=== PATIENT | female | born 1940 | race Caucasian/White ===

== ENCOUNTER 2018-02-02 08:00 | Outpatient (CLI) | payer MEDICARE, OTHER ==
[2018-02-02 18:58] LABS: BASOPHILS # (AUTO) 0.1 10^3/uL (0.0-0.1); BASOPHILS % (AUTO) 0.7 %; EOSINOPHILS # (AUTO) 0.2 10^3/uL (0.0-0.7); EOSINOPHILS % (AUTO) 1.9 %; HGB - HEMOGLOBIN 12.6 g/dL (12.0-16.0); LYMPHOCYTES # (AUTO) 2.2 10^3/uL (1.5-3.5); LYMPHOCYTES % (AUTO) 25.3 %; MEAN CORPUSCULAR HEMOGLOBIN 28.6 pg (27.0-31.0); MEAN CORPUSCULAR HGB CONC 32.5 g/dL (32.0-36.0); MEAN PLATELET VOLUME 8.3 fL (7.9-10.8); MONOCYTES # (AUTO) 0.6 10^3/uL (0.0-1.0); MONOCYTES % (AUTO) 7.1 %; NEUTROPHILS # (AUTO) 5.8 10^3/uL (1.5-6.6); PLT - PLATELET COUNT 443 10^3/uL (130-450); RED CELL DISTRIBUTION WIDTH 13.4 % (12.0-15.0); WHITE BLOOD COUNT 8.9 x10^3/uL (4.8-10.8)
[2018-02-02 19:13] LABS: ALBUMIN 4.4 g/dL (3.2-5.5); ALBUMIN/GLOBULIN RATIO 1.6 (1.0-2.2); ALKALINE PHOSPHATASE 90 IU/L (42-121); ALT ALANINE AMINOTRANSFERASE 15 IU/L (10-60); AMYLASE 79 U/L (28-100); AST ASPARTATE AMINOTRANSFERASE 20 IU/L (10-42); BILIRUBIN,TOTAL 0.3 mg/dL (0.2-1.0); BUN - BLOOD UREA NITROGEN 14 mg/dL (6-20); CALCIUM 9.5 mg/dL (8.5-10.3); CARBON DIOXIDE - CO2 24 mmol/L (21-32); CHLORIDE 105 mmol/L (101-111); CREATININE 0.8 mg/dL (0.4-1.0); GFR - MDRD 69 (>89); GLUCOSE 93 mg/dL (70-100); LIPASE 22 U/L (22-51); SODIUM 138 mmol/L (135-145); TOTAL PROTEIN 7.2 g/dL (6.7-8.2)
[2018-02-02 19:30] LABS: CRP - C-REACTIVE PROTEIN < 1.0 mg/dL (0-1.0)
== END 2018-02-02 08:01 | disposition home or self-care (01) ==
LOC: LAB.WCP 08:00
PROVIDERS: ATTEND Family Medicine
DX: R10.11 Right upper quadrant pain (principal)
CPT/HCPCS: 36415; 80053; 82150; 83690; 85025; 86140

== ENCOUNTER 2018-02-03 21:32 | Outpatient (CLI) | payer MEDICARE, OTHER | END 2018-02-03 21:33 | disposition home or self-care (01) | LOC: LAB.WCP 21:32 | PROVIDERS: ATTEND Family Medicine | DX: R10.11 Right upper quadrant pain (principal) | CPT/HCPCS: 87493 ==

== ENCOUNTER 2018-04-13 08:00 | Outpatient (CLI) | payer MEDICARE ==
[2018-04-13 19:03] LABS: HGB - HEMOGLOBIN 12.1 g/dL (12.0-16.0); MEAN CORPUSCULAR HGB CONC 32.2 g/dL (32.0-36.0); MEAN CORPUSCULAR VOLUME 83.9 fL (81.0-99.0); MEAN PLATELET VOLUME 8.2 fL (7.9-10.8); RED BLOOD COUNT 4.46 10^6/uL (4.20-5.40); RED CELL DISTRIBUTION WIDTH 15.6 % (12.0-15.0); WHITE BLOOD COUNT 6.9 x10^3/uL (4.8-10.8)
[2018-04-13 19:19] LABS: TROPONIN I < 0.04 ng/mL (<0.49)
[2018-04-13 19:21] LABS: CREATINE KINASE MB 1.7 ng/mL (0.6-6.3)
[2018-04-13 19:28] LABS: ALBUMIN 3.9 g/dL (3.2-5.5); ALBUMIN/GLOBULIN RATIO 1.4 (1.0-2.2); BILIRUBIN,TOTAL 0.2 mg/dL (0.2-1.0); CALCIUM 10.1 mg/dL (8.5-10.3); CREATININE 0.6 mg/dL (0.4-1.0); TOTAL PROTEIN 6.7 g/dL (6.7-8.2)
== END 2018-04-13 08:01 | disposition home or self-care (01) ==
LOC: LAB.WCP 08:00
PROVIDERS: ATTEND Family Medicine
DX: R07.9 Chest pain, unspecified (principal)
CPT/HCPCS: 36415; 80053; 82553; 84484; 85027; 85379

== ENCOUNTER 2018-04-14 22:00 | Outpatient (CLI) | payer MEDICARE | END 2018-04-14 22:01 | disposition critical access hospital (66) | LOC: EMS 22:00 | PROVIDERS: ATTEND Surgery | DX: R07.9 Chest pain, unspecified (principal); R11.0 Nausea | CPT/HCPCS: A0425; A0427 ==

== ENCOUNTER 2018-04-14 22:13 | Emergency (ER) | payer MEDICARE ==
[2018-04-14 22:48] LABS: BASOPHILS # (AUTO) 0.1 10^3/uL (0.0-0.1); BASOPHILS % (AUTO) 0.7 %; EOSINOPHILS # (AUTO) 0.2 10^3/uL (0.0-0.7); EOSINOPHILS % (AUTO) 2.3 %; HGB - HEMOGLOBIN 11.8 g/dL (12.0-16.0); LYMPHOCYTES # (AUTO) 1.8 10^3/uL (1.5-3.5); LYMPHOCYTES % (AUTO) 23.1 %; MEAN CORPUSCULAR HEMOGLOBIN 26.5 pg (27.0-31.0); MEAN CORPUSCULAR HGB CONC 31.4 g/dL (32.0-36.0); MEAN CORPUSCULAR VOLUME 84.3 fL (81.0-99.0); MEAN PLATELET VOLUME 7.7 fL (7.9-10.8); MONOCYTES # (AUTO) 0.8 10^3/uL (0.0-1.0); MONOCYTES % (AUTO) 10.9 %; NEUTROPHILS # (AUTO) 4.8 10^3/uL (1.5-6.6); PLT - PLATELET COUNT 310 10^3/uL (130-450); RED BLOOD COUNT 4.47 10^6/uL (4.20-5.40); WHITE BLOOD COUNT 7.7 x10^3/uL (4.8-10.8)
[2018-04-14] MEDS ORDERED: LIDOCAINE VISCOUS 2% 15 ML UDC MM STA (22:55)
[2018-04-14] MEDS ORDERED: FAMOTIDINE 20 MG TABLET PO STA (22:55)
[2018-04-14] MEDS ORDERED: MAG HYDROX/AL HYDROX/SIMETH 30 ML UDC PO STA (22:55)
[2018-04-14] MEDS ORDERED: IOPAMIDOL-300 100 ML VIAL ONE (22:56)
[2018-04-14 23:01] LABS: ALBUMIN 3.6 g/dL (3.2-5.5); ALBUMIN/GLOBULIN RATIO 1.4 (1.0-2.2); BILIRUBIN,TOTAL 0.6 mg/dL (0.2-1.0); CALCIUM 9.2 mg/dL (8.5-10.3); CREATININE 0.7 mg/dL (0.4-1.0); TOTAL PROTEIN 6.2 g/dL (6.7-8.2)
[2018-04-14] MEDS ORDERED: ONDANSETRON 4 MG/2 ML VIAL IVP STA (23:28)
[2018-04-14] MEDS ORDERED: IOPAMIDOL-300 100 ML VIAL IVP ONE (23:28)
[2018-04-14] MEDS ORDERED: MORPHINE 10 MG/ML VIAL IVP STA (23:49)
--- NOTE | 2018-04-15 00:07 | CT Report ---
EXAM: CT ANGIOGRAM CHEST EXAM DATE: 04/14/2018 11:29 PM. CLINICAL HISTORY: Chest pain, tachycardic. COMPARISON: CT abdomen 07/04/2016. TECHNIQUE: Routine helical imaging was performed through the chest in the pulmonary arterial phase. I V Contrast: Yes. Reconstructions: Coronal 3-D MIP reconstructions.Sagittal and coronal. In accordance with CT protocol optimization, one or more of the following dose reduction techniques w ere utilized for this exam: automated exposure control, adjustment of mA and/or KV based on patient s ize, or use of iterative reconstructive technique. FINDINGS: Pulmonary Arteries: Technically adequate for evaluation through the segmental arteries. No evidence f or acute or chronic pulmonary emboli. Lungs/Pleura: No pneumonia, suspicious nodules, or edema. Minimal subpleural reticulation probably re lated to senescent changes rather than a significant pulmonary fibrosis. No effusions or pneumothorax . Mediastinum: Moderate hiatal hernia. No acute aortic syndrome. No cardiac enlargement. No adenopathy . Upper Abdomen: Incidental right adrenal adenoma again noted without acute abnormality seen in the upp er abdomen. Other: None. IMPRESSION: 1. Negative pulmonary CT angiogram. No pulmonary emboli. 2. Moderate hiatal hernia. [facility] Referring Provider Line: [phone] SITE ID: [id number]
--- NOTE | 2018-04-15 00:24 | ED Physician Documentation ---
PD HPI CHEST PAIN - Stated complaint Stated Complaint: CP - Chief complaint Chief Complaint: Cardiac - History obtained from History obtained from: Patient, Family, EMS - History of Present Illness Timing - onset: How many days ago (5) Timing - onset during: Sleep Timing - details: Intermittant, Waxing and waning Quality: Sharp, Tearing Location: Substernal Radiation: Back Improved by: Other (sitting up) Worsened by: Position, Other (lying flat) Associated symptoms: Shortness of air, Diaphoresis, Nausea, Vomiting Similar symptoms before: Work up / diagnostics Recently seen: Clinic - Additional information Additional information: Patient is a 78 year old female presenting to the emergency department for chest pain. According to patient and ems patient has had pain for about the last 4-5 days. Patient went to see her doctor and all of the tests were normal. patient states that the pain is worse when she lies down at night and better when she sits up. Patient does not have the pain throughout the day. there is no exertional component. Patient was told to come to the ER if the pain returned. Review of Systems Constitutional: denies: Fever, Chills Eyes: reports: Reviewed and negative Ears: reports: Reviewed and negative Cardiac: reports: Chest pain / pressure Respiratory: denies: Dyspnea, Cough, Wheezing GI: reports: Abdominal Pain, Nausea. denies: Vomiting, Constipation, Diarrhea : denies: Dysuria, Frequency Musculoskeletal: reports: Back pain Immunocompromised: denies: Immunocompromised PD PAST MEDICAL HISTORY - Present Medications Home Medications: Ambulatory Orders Medication Instructions Recorded Confirmed Famotidine [Pepcid] 20 mg PO DAILY #30 tablet 04/15/18 Pantoprazole Sodium [Protonix] 20 mg PO DAILY #30 tablet. 04/15/18 Sucralfate [Carafate] 1 gm PO DAILY #100 ml 04/15/18 - Allergies Allergies/Adverse Reactions: Allergies Allergy/AdvReac Type Severity Reaction Status Date / Time codeine Allergy Unknown Verified 04/15/18 00:41 Penicillins Allergy Unknown Verified 04/15/18 00:41 PD ED PE NORMAL - Vitals Vital signs reviewed: Yes - General General: Alert and oriented X 3, No acute distress - HEENT HEENT: Atraumatic - Neck Neck: No JVD - Cardiac Cardiac: RRR - Respiratory Respiratory: No respiratory distress - Abdomen Abdomen: Soft, Non tender, Non distended - Derm Derm: Normal color, Warm and dry, No rash - Extremities Extremities: No deformity - Neuro Neuro: Alert and oriented X 3 Eye Opening: Spontaneous Motor: Obeys Commands Verbal: Oriented GCS Score: 15 Results - Vitals Vitals: Vital Signs - 24 hr 04/14/18 04/14/18 04/15/18 22:15 23:03 00:30 Temperature 36.6 C Heart Rate 99 93 99 Respiratory 16 16 19 Rate Blood Pressure 170/72 H 139/59 H 155/65 H O2 Saturation 98 97 92 04/15/18 00:40 Temperature Heart Rate 97 Respiratory 16 Rate Blood Pressure 139/57 H O2 Saturation 98 Oxygen O2 Source Room air - EKG (time done) 2218 Rate: Rate (enter#) (95) Rhythm: NSR [place]: Normal Intervals: Normal VT Compare to prior EKG: Old EKG unavailable - Labs Labs: Laboratory Tests 04/14/18 04/14/18 04/14/18 22:35 22:35 22:35 WBC 7.7 RBC 4.47 Hgb 11.8 L Hct 37.6 MCV 84.3 MCH 26.5 L MCHC 31.4 L RDW 15.0 Plt Count 310 MPV 7.7 L Neut # 4.8 Lymph # 1.8 Cassia # 0.8 Eos # 0.2 Baso # 0.1 Absolute Nucleated RBC 0.00 Nucleated RBC % 0.0 Sodium 138 Potassium 3.8 Chloride 105 Carbon Dioxide 24 Anion Gap 9.0 BUN 23 H Creatinine 0.7 Estimated GFR (MDRD) 81 L Glucose 145 H Calcium 9.2 Total Bilirubin 0.6 AST 19 ALT 17 Alkaline Phosphatase 87 Total Creatine Kinase 54 Troponin I 0.04 B-Natriuretic Peptide Total Protein 6.2 L Albumin 3.6 Globulin 2.6 Albumin/Globulin Ratio 1.4 Lipase 32 04/14/18 22:35 WBC RBC Hgb Hct MCV MCH MCHC RDW Plt Count MPV Neut # Lymph # Cassia # Eos # Baso # Absolute Nucleated RBC Nucleated RBC % Sodium Potassium Chloride Carbon Dioxide Anion Gap BUN Creatinine Estimated GFR (MDRD) Glucose Calcium Total Bilirubin AST ALT Alkaline Phosphatase Total Creatine Kinase Troponin I B-Natriuretic Peptide 51 Total Protein Albumin Globulin Albumin/Globulin Ratio Lipase - Rads (name of study) ct angio Radiology: Final report received (no pe) PD MEDICAL DECISION MAKING - ED course Complexity details: reviewed old records, reviewed results, re-evaluated patient , considered differential, d/w patient, d/w family ED course: Patient was seen and examined at bedside. ekg was performed and was within normal limits. IV access was gained and labs were drawn. imaging was ordered. Patient had severe symptoms when she was lying down and got better when she was sitting up. Patient was treated with pepcid, maalox and lidocaine. When patient returned from imaging she stated that her pain was back and patient was treated with morphine. Patient's diagnostics were reviewed and there was no PE or other acute findings. Patient was found to have a hiatal hernia. Further discussion with the patient revealed that she had been eating at least 3 clementines daily, so days even more. Patient reported that her symptoms didn' t start until after she had started eating them. Patient had an appointment for a stress test next week. Patient was well appearing and her symptoms were unlikely cardiac in nature. Patient was stable for discharge with outpatient follow up. Departure - Departure Disposition: Home, Self Care Clinical Impression: Gastritis Condition: Good Instructions: ED Gastritis Follow-Up: James Donovan MD [Provider Admit Priv/Credential] - Tomorrow Prescriptions: Famotidine [Pepcid] 20 mg PO DAILY #30 tablet Pantoprazole Sodium [Protonix] 20 mg PO DAILY #30 tablet. Sucralfate [Carafate] 1 gm PO DAILY #100 ml Comments: Your diagnostics today were within normal limits. this indicates it is less likely cardiac in nature. That being said you should still follow up with your appointment for the stress test. Your symptoms seem to be related to stomach acid and your hiatal hernia. You will need to cut out acidic foods (clementines , coffee, alcohol) spicey foods and eat smaller meals. You should call Dr. Posadas' office tomorrow and schedule a follow up appointment. Discharge Date/Time: 04/15/18 00:50
[2018-04-15 00:41] VITALS: BP 139/57
== END 2018-04-15 00:50 | disposition home or self-care (01) ==
LOC: EDUNIT# → ED 22:13
DX: K29.70 Gastritis, unspecified, without bleeding (principal)
CPT/HCPCS: 36415; 71275; 80053; 82550; 83690; 83880; 84484; 85025; 93005; 96374; 96375; 99283; 99284; A9270; Q9967

== ENCOUNTER 2018-04-27 16:03 | Outpatient (CLI) | payer MEDICARE ==
--- NOTE | 2018-04-27 17:09 | Ultrasound Report ---
EXAM: ABDOMEN ULTRASOUND LIMITED, RUQ EXAM DATE: 04/27/2018 04:56 PM. CLINICAL HISTORY: ABDOMINAL PAIN,RT UPPER QUADRANT. COMPARISON: None. TECHNIQUE: Real-time scanning was performed with static images obtained. FINDINGS: Liver: Diffuse increased echogenicity with area of focal sparing. 16.9 cm. Main portal vein flow: Hep atopetal. Gallbladder: No stones, wall thickening, or sonographic Huang's sign. Biliary System: CBD measures 8 mm. No intrahepatic or extrahepatic ductal dilatation. Other: Mild fullness to the right collecting system. IMPRESSION: Mild fullness to the right collecting system appears to be present, not clearly seen on prior CT from 04/14/18, although comparison between the 2 modalities is difficult. CT could better assess for possi ble hydronephrosis. Hepatic steatosis. [facility] The above findings were discussed with Dr Robert Dr by Dr. Newton Williamson at 17:07 hrs on 04/27/18. Referring Provider Line: [phone] SITE ID: [id number]
== END 2018-04-27 16:04 | disposition home or self-care (01) ==
LOC: DI 16:03
PROVIDERS: ATTEND Internal Medicine Gastroenterology
DX: R10.11 Right upper quadrant pain (principal); K76.0 Fatty (change of) liver, not elsewhere classified
CPT/HCPCS: 76705

== ENCOUNTER 2018-04-29 08:51 | Day surgery (SDC) | payer MEDICARE | END 2018-04-29 08:52 | disposition home or self-care (01) | LOC: SDS 08:51 | PROVIDERS: ATTEND Internal Medicine Gastroenterology | DX: R13.10 Dysphagia, unspecified (principal); K44.9 Diaphragmatic hernia without obstruction or gangrene; R07.9 Chest pain, unspecified | CPT/HCPCS: 93005 ==

== ENCOUNTER 2018-04-29 10:01 | Emergency (ER) | payer MEDICARE ==
[2018-04-29 10:25] LABS: BASOPHILS % (AUTO) 0.5 %; EOSINOPHILS % (AUTO) 0.4 %; HGB - HEMOGLOBIN 12.4 g/dL (12.0-16.0); LYMPHOCYTES # (AUTO) 1.1 10^3/uL (1.5-3.5); LYMPHOCYTES % (AUTO) 15.5 %; MEAN CORPUSCULAR HEMOGLOBIN 27.5 pg (27.0-31.0); MEAN CORPUSCULAR HGB CONC 32.5 g/dL (32.0-36.0); MEAN CORPUSCULAR VOLUME 84.5 fL (81.0-99.0); MEAN PLATELET VOLUME 7.8 fL (7.9-10.8); MONOCYTES # (AUTO) 0.6 10^3/uL (0.0-1.0); MONOCYTES % (AUTO) 8.3 %; NEUTROPHILS # (AUTO) 5.5 10^3/uL (1.5-6.6); NEUTROPHILS % (AUTO) 75.3 %; PLT - PLATELET COUNT 398 10^3/uL (130-450); RED BLOOD COUNT 4.52 10^6/uL (4.20-5.40); RED CELL DISTRIBUTION WIDTH 15.4 % (12.0-15.0); WHITE BLOOD COUNT 7.4 x10^3/uL (4.8-10.8)
[2018-04-29 10:40] LABS: ALBUMIN 3.4 g/dL (3.2-5.5); ALBUMIN/GLOBULIN RATIO 1.1 (1.0-2.2); BILIRUBIN,TOTAL 0.5 mg/dL (0.2-1.0); CALCIUM 9.6 mg/dL (8.5-10.3); CREATININE 0.6 mg/dL (0.4-1.0); TOTAL PROTEIN 6.4 g/dL (6.7-8.2)
[2018-04-29 10:54] LABS: BILIRUBIN,URINE NEGATIVE (NEGATIVE); CLARITY,URINE CLEAR (CLEAR); GLUCOSE, URINE (UA) NEGATIVE (NEGATIVE); KETONES,URINE (UA) NEGATIVE (NEGATIVE); LEUKOCYTE ESTERASE, URINE NEGATIVE (NEGATIVE); NITRITE,URINE NEGATIVE (NEGATIVE); OCCULT BLOOD,URINE NEGATIVE (NEGATIVE); PROTEIN,URINE NEGATIVE (NEGATIVE); UROBILINOGEN,URINE 0.2 (NORMAL) E.U./dL (NORMAL)
--- NOTE | 2018-04-29 11:46 | ED Physician Documentation ---
PD HPI CHEST PAIN - Stated complaint Stated Complaint: AFIB - Chief complaint Chief Complaint: Cardiac - History obtained from History obtained from: Patient, Family - History of Present Illness Timing - onset: Enter time (), Today Timing - onset during: Sleep Timing - duration: Minutes Timing - details: Abrupt onset, Intermittant Quality: Pressure, Tightness Location: Substernal, Upper back Radiation: Back Improved by: Nothing Associated symptoms: Nausea, Feeling faint / dizzy. No: Shortness of air, Vomiting Similar symptoms before: Diagnosis (gastritis) Recently seen: Other - Additional information Additional information: 78-year-old female has had episodes of chest pain for the past 3 weeks. She has had some nausea and some vomiting with some water associated with this and she has been seen in the emergency department and diagnosed with gastritis. She is on some medications which did not seem to have made the episodes less. She was noted to have a hiatal hernia at the time of evaluation in the emergency department and she was to get a EGD done today. She has also had further workup to include gallbladder ultrasound and an exercise treadmill test. She indicates the exercise treadmill test she believes was negative she recalls doing about 10 minutes on the test. Review of Systems Constitutional: denies: Fever, Chills, Myalgias Eyes: denies: Decreased vision Ears: denies: Ear pain Nose: denies: Congestion Throat: denies: Sore throat Cardiac: reports: Chest pain / pressure. denies: Palpitations, Pedal edema, Calf pain Respiratory: denies: Dyspnea, Cough GI: reports: Abdominal Pain, Nausea, Vomiting : denies: Dysuria Skin: denies: Rash Musculoskeletal: denies: Neck pain, Back pain PD PAST MEDICAL HISTORY - Past Medical History Cardiovascular: Hypertension, Arrhythmia Respiratory: Other Endocrine/Autoimmune: None GI: GERD, Colon polyps, Diverticulitis : None HEENT: Chronic vision loss Psych: None Musculoskeletal: None Derm: None - Past Surgical History Past Surgical History: Yes General: Appendectomy, Colonoscopy, EGD Ortho: Shoulder arthroplasty, Other /CONFORMAL PAD FORMER: Dilation and currettage, Hysterectomy, Other HEENT: Cataracts, Tonsil/Adenoidectomy - Present Medications Home Medications: Ambulatory Orders Medication Instructions Recorded Confirmed Famotidine [Pepcid] 20 mg PO DAILY #30 tablet 04/15/18 Pantoprazole Sodium [Protonix] 20 mg PO DAILY #30 tablet. 04/15/18 Sucralfate [Carafate] 1 QID 04/28/18 - Allergies Allergies/Adverse Reactions: Allergies Allergy/AdvReac Type Severity Reaction Status Date / Time codeine Allergy Unknown Verified 04/15/18 00:41 Penicillins Allergy Unknown Verified 04/15/18 00:41 - Social History Does the pt smoke?: No Smoking Status: Never smoker Does the pt drink ETOH?: No Does the pt have substance abuse?: No - Immunizations Immunizations are current?: Yes - POLST Patient has POLST: No PD ED PE NORMAL - Vitals Vital signs reviewed: Yes (tachy and hypertensive) - General General: Alert and oriented X 3, Well developed/nourished, Other (appears mildy anxious) - HEENT HEENT: Atraumatic, PERRL, EOMI - Neck Neck: Supple, no meningeal sign, No bony TTP - Cardiac Cardiac: No murmur, Other (regular and tachy to 100) - Respiratory Respiratory: No respiratory distress, Clear bilaterally - Abdomen Abdomen: Soft, Other (mild right lower quadrant tenderness) - Back Back: No CVA TTP, No spinal TTP - Derm Derm: Normal color, No rash - Extremities Extremities: No deformity, No calf tenderness / cord - Neuro Neuro: Alert and oriented X 3, No motor deficit, No sensory deficit, Normal speech Eye Opening: Spontaneous Motor: Obeys Commands Verbal: Oriented GCS Score: 15 - Psych Psych: Normal affect, Other (mood is anxious) Results - Vitals Vitals: Vital Signs - 24 hr 04/29/18 10:11 Temperature 36.8 C Heart Rate 102 H Respiratory 17 Rate Blood Pressure 138/54 H O2 Saturation 99 Oxygen O2 Source Room air - EKG (time done) 0929 Rate: Rate (enter#) (131) Rhythm: Atrial fibrillation Compare to prior EKG: Changed from prior EKG (SPT 04-14-18) Computer interpretation: Agree with computer - Labs Labs: Laboratory Tests 04/29/18 04/29/18 04/29/18 10:15 10:15 10:15 WBC 7.4 RBC 4.52 Hgb 12.4 Hct 38.2 MCV 84.5 MCH 27.5 MCHC 32.5 RDW 15.4 H Plt Count 398 MPV 7.8 L Neut # (Auto) 5.5 Lymph # (Auto) 1.1 L [place] # (Auto) 0.6 Eos # (Auto) 0.0 Baso # (Auto) 0.0 Absolute Nucleated RBC 0.00 Nucleated RBC % 0.0 Sodium 137 Potassium 4.3 Chloride 105 Carbon Dioxide 25 Anion Gap 7.0 BUN 16 Creatinine 0.6 Estimated GFR (MDRD) 96 Glucose 123 H Calcium 9.6 Total Bilirubin 0.5 AST 24 ALT 24 Alkaline Phosphatase 70 Troponin I < 0.04 Total Protein 6.4 L Albumin 3.4 Globulin 3.0 Albumin/Globulin Ratio 1.1 Lipase 33 Urine Color Urine Clarity Urine pH Ur Specific [place] Urine Protein Urine Glucose (UA) Urine Ketones Urine Occult Blood Urine Nitrite Urine Bilirubin Urine Urobilinogen Ur Leukocyte Esterase Ur Microscopic Review Urine Culture Comments 04/29/18 10:45 WBC RBC Hgb Hct MCV MCH MCHC RDW Plt Count MPV Neut # (Auto) Lymph # (Auto) [place] # (Auto) Eos # (Auto) Baso # (Auto) Absolute Nucleated RBC Nucleated RBC % Sodium Potassium Chloride Carbon Dioxide Anion Gap BUN Creatinine Estimated GFR (MDRD) Glucose Calcium Total Bilirubin AST ALT Alkaline Phosphatase Troponin I Total Protein Albumin Globulin Albumin/Globulin Ratio Lipase Urine Color YELLOW Urine Clarity CLEAR Urine pH 6.0 Ur Specific [place] 1.020 Urine Protein NEGATIVE Urine Glucose (UA) NEGATIVE Urine Ketones NEGATIVE Urine Occult Blood NEGATIVE Urine Nitrite NEGATIVE Urine Bilirubin NEGATIVE Urine Urobilinogen 0.2 (NORMAL) Ur Leukocyte Esterase NEGATIVE Ur Microscopic Review NOT INDICATED Urine Culture Comments NOT INDICATED Procedures - IVC sono (time) 1130 Bedside IVC sono: IVC measures (cm) (1.68), IVC collapsed c insp (cm) (1.02), Euvolemia PD MEDICAL DECISION MAKING - ED course Complexity details: reviewed old records, reviewed results, re-evaluated patient , considered differential, d/w patient, d/w family ED course: 78-year-old female who is been having episodes of chest pain for the past 3 weeks was in the preop area getting ready to have an EGD done when her heart rate was 120 electric cardiogram was done showing atrial fibrillation with rapid ventricular rate at 131 and she was transferred to the emergency department for further evaluation. She gives a history of episodic chest pain without a history of exertionally related chest pain and she has been in for diagnostics which have been without clear etiology. She has not had improvement with treatment of gastritis. Here in the emergency department she converts to a sinus rhythm with a rate of approximately 100 she did receive a liter of saline. She appears now euvolemic. Despite this she has an episode of chest pain and this is improved with use of a single sublingual nitroglycerin. Her troponin initially is negative and transfer is sought. Dr. Lira graciously accepts the patient in transfer to [facility]. - Sepsis Event Vital Signs: Vital Signs - 24 hr 04/29/18 10:11 Temperature 36.8 C Heart Rate 102 H Respiratory 17 Rate Blood Pressure 138/54 H O2 Saturation 99 Oxygen O2 Source Room air Departure - Departure Disposition: 02 Transfer Acute Care Hosp Clinical Impression: Atypical chest pain, Unstable angina
[2018-04-29] MEDS ORDERED: NITROGLYCERIN SL 0.4 MG TABLET SL ONE (11:48)
[2018-04-29] MEDS ORDERED: NITROGLYCERIN SL 0.4 MG TABLET SL STA (12:01)
[2018-04-29] MEDS ORDERED: ASPIRIN CHEW 81 MG TABLET PO STA (12:31)
[2018-04-29] MEDS ORDERED: HEPARIN 5,000 UNIT/ML VIAL IVP ONE (12:37)
[2018-04-29 12:46] VITALS: BP 129/60
== END 2018-04-29 14:30 | disposition short-term general hospital (02) ==
LOC: ED 10:01
DX: I48.91 Unspecified atrial fibrillation (principal); I20.0 Unstable angina; I10 Essential (primary) hypertension; K21.9 Gastro-esophageal reflux disease without esophagitis; K44.9 Diaphragmatic hernia without obstruction or gangrene; R13.10 Dysphagia, unspecified; R07.9 Chest pain, unspecified
CPT/HCPCS: 36415; 80053; 81003; 83690; 84484; 85025; 93005; 96374; 99284; 99285; A9270; 81001; 87086

== ENCOUNTER 2018-05-06 06:08 | Outpatient (CLI) | payer MEDICARE | END 2018-05-06 06:09 | disposition critical access hospital (66) | LOC: EMS 06:08 | PROVIDERS: ATTEND Surgery | DX: R07.9 Chest pain, unspecified (principal) | CPT/HCPCS: A0425; A0427 ==

== ENCOUNTER 2018-05-06 06:27 | Emergency (ER) | payer MEDICARE ==
[2018-05-06] MEDS ORDERED: ONDANSETRON ODT 4 MG TABLET TL STA (06:46)
[2018-05-06 06:50] LABS: BASOPHILS # (AUTO) 0.1 10^3/uL (0.0-0.1); EOSINOPHILS # (AUTO) 0.1 10^3/uL (0.0-0.7); EOSINOPHILS % (AUTO) 2.1 %; HGB - HEMOGLOBIN 12.7 g/dL (12.0-16.0); LYMPHOCYTES # (AUTO) 1.8 10^3/uL (1.5-3.5); LYMPHOCYTES % (AUTO) 25.9 %; MEAN CORPUSCULAR HEMOGLOBIN 27.4 pg (27.0-31.0); MEAN CORPUSCULAR VOLUME 85.5 fL (81.0-99.0); MEAN PLATELET VOLUME 8.3 fL (7.9-10.8); MONOCYTES # (AUTO) 0.7 10^3/uL (0.0-1.0); MONOCYTES % (AUTO) 10.4 %; NEUTROPHILS # (AUTO) 4.2 10^3/uL (1.5-6.6); NEUTROPHILS % (AUTO) 60.6 %; PLT - PLATELET COUNT 366 10^3/uL (130-450); RED BLOOD COUNT 4.62 10^6/uL (4.20-5.40); RED CELL DISTRIBUTION WIDTH 15.7 % (12.0-15.0); WHITE BLOOD COUNT 6.8 x10^3/uL (4.8-10.8)
[2018-05-06 07:01] LABS: ALBUMIN 3.5 g/dL (3.2-5.5); ALBUMIN/GLOBULIN RATIO 1.1 (1.0-2.2); BILIRUBIN,TOTAL 0.6 mg/dL (0.2-1.0); CALCIUM 10.2 mg/dL (8.5-10.3); CREATININE 0.6 mg/dL (0.4-1.0); MAGNESIUM 1.9 mg/dL (1.7-2.8); PHOSPHORUS 2.8 mg/dL (2.5-4.6); TOTAL PROTEIN 6.7 g/dL (6.7-8.2)
--- NOTE | 2018-05-06 07:11 | ED Physician Documentation ---
PD HPI CHEST PAIN - Stated complaint Stated Complaint: CHEST DISCOMFORT - Chief complaint Chief Complaint: Cardiac - History obtained from History obtained from: Patient - History of Present Illness Timing - onset: Today (onset of pain this morning about 4 am, awakened from sleep. She has been having similar pains at night when trying to sleep for the past 2-3 weeks fairly regularly, and had noted chest pain/dyspnea with exertional activity that same timeframe, so she has not been able to go out for walks. Seen in ER a week ago for these episodes and was transferred to [facility] for Cardiology eval. Discharged with normal stress test and Rx with sucralfate and PPI. Still having pains since then intermittently.) Timing - onset during: Rest Timing - duration: Hours (2) Timing - details: Abrupt onset, Still present Quality: Aching, Pain Location: Substernal, Right shoulder/arm Radiation: Neck, Left upper extremity Improved by: Nitro (by EMS). No: Rest Worsened by: Exertion. No: Inspiration, Eating, Movement, Palpation Associated symptoms: Shortness of air, General Weakness, Palpitations. No: Nausea, Feeling faint / dizzy Similar symptoms before: No diagnosis Recently seen: Emergency Dept, Admitted (concern for unstable angina and transferred to [facility]. Patient states she had ECHO and stress test (regular stress without IV). Apparently normal and she was discharged. Rx wtih gastritis meds (sucralfate and PPI). Has continued with pain at nights/overnight, and also limited activity as LARA/chest pain on exertion. She had pain again this morning worse.) Review of Systems Constitutional: reports: Fatigue. denies: Fever, Chills, Myalgias Nose: denies: Rhinorrhea / runny nose, Congestion Throat: denies: Sore throat Cardiac: reports: Chest pain / pressure, Palpitations. denies: Pedal edema, Calf pain Respiratory: denies: Dyspnea, Cough, Wheezing GI: denies: Abdominal Pain, Abdominal Swelling, Nausea, Vomiting : denies: Dysuria, Frequency Skin: denies: Rash, Lesions Neurologic: reports: Generalized weakness. 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 04/15/18 Sucralfate [Carafate] 1 QID 04/28/18 - Allergies Allergies/Adverse Reactions: Allergies Allergy/AdvReac Type Severity Reaction Status Date / Time codeine Allergy Unknown Verified 04/15/18 00:41 Penicillins Allergy Unknown Verified 04/15/18 00:41 - Social History Does the pt smoke?: No Smoking Status: Never smoker Does the pt drink ETOH?: No Does the pt have substance abuse?: No - Immunizations Immunizations are current?: Yes - POLST Patient has POLST: No PD ED PE NORMAL - Vitals Vital signs reviewed: Yes - General General: Alert and oriented X 3, No acute distress (but states she is in moderate pain), Well developed/nourished - HEENT HEENT: Ears normal, Pharynx benign - Neck Neck: Supple, no meningeal sign, No adenopathy - Cardiac Cardiac: RRR, No murmur - Respiratory Respiratory: Clear bilaterally, Other (no chestwall tenderness. ) - Abdomen Abdomen: Soft, Non tender - Female Female : Deferred - Rectal Rectal: Deferred - Back Back: No CVA TTP - Derm Derm: Normal color, Warm and dry, No rash - Extremities Extremities: No deformity, No tenderness to palpate, Normal ROM s pain, No edema , No calf tenderness / cord - Neuro Neuro: Alert and oriented X 3, No motor deficit, Normal speech Eye Opening: Spontaneous Motor: Obeys Commands Verbal: Oriented GCS Score: 15 - Psych Psych: Normal mood, Normal affect Results - Vitals Vitals: Vital Signs - 24 hr 05/06/18 05/06/18 05/06/18 06:29 07:17 08:02 Temperature 36.7 C Heart Rate 109 H 110 H 110 H Respiratory 20 20 19 Rate Blood Pressure 150/67 H 139/80 H 135/67 H O2 Saturation 100 95 95 05/06/18 05/06/18 05/06/18 08:39 09:52 11:32 Temperature Heart Rate 92 100 100 Respiratory 20 22 21 Rate Blood Pressure 109/54 L 100/35 L 112/60 O2 Saturation 95 96 97 05/06/18 05/06/18 05/06/18 11:54 12:35 13:16 Temperature Heart Rate 99 88 99 Respiratory 16 16 18 Rate Blood Pressure 112/60 96/44 L 138/64 H O2 Saturation 95 98 98 Oxygen O2 Source Room air - EKG (time done) 06:38 Rate: Rate (enter#) (91) Rhythm: NSR [place]: Normal Intervals: Normal TN QRS: Normal Ischemia: Normal ST segments. No: ST elevation c/w ischemia (subtle possible elevation anterolateral but similar to 04/29/18), ST depression, T wave inversion Compare to prior EKG: Unchanged from prior EKG Computer interpretation: Agree with computer - Labs Labs: Laboratory Tests 05/06/18 05/06/18 05/06/18 06:35 06:35 06:35 WBC 6.8 RBC 4.62 Hgb 12.7 Hct 39.5 MCV 85.5 MCH 27.4 MCHC 32.0 RDW 15.7 H Plt Count 366 MPV 8.3 Neut # (Auto) 4.2 Lymph # (Auto) 1.8 [place] # (Auto) 0.7 Eos # (Auto) 0.1 Baso # (Auto) 0.1 Absolute Nucleated RBC 0.00 Nucleated RBC % 0.0 Sodium 139 Potassium 4.0 Chloride 105 Carbon Dioxide 23 Anion Gap 11.0 BUN 18 Creatinine 0.6 Estimated GFR (MDRD) 96 Glucose 123 H Calcium 10.2 Phosphorus 2.8 Magnesium 1.9 Total Bilirubin 0.6 AST 36 ALT 33 Alkaline Phosphatase 71 Troponin I 0.27 B-Natriuretic Peptide Total Protein 6.7 Albumin 3.5 Globulin 3.2 Albumin/Globulin Ratio 1.1 Lipase 48 05/06/18 05/06/18 06:35 08:12 WBC RBC Hgb Hct MCV MCH MCHC RDW Plt Count MPV Neut # (Auto) Lymph # (Auto) [place] # (Auto) Eos # (Auto) Baso # (Auto) Absolute Nucleated RBC Nucleated RBC % Sodium Potassium Chloride Carbon Dioxide Anion Gap BUN Creatinine Estimated GFR (MDRD) Glucose Calcium Phosphorus Magnesium Total Bilirubin AST ALT Alkaline Phosphatase Troponin I 0.92 H* B-Natriuretic Peptide 157 H Total Protein Albumin Globulin Albumin/Globulin Ratio Lipase - Rads (name of study) chest Radiology: Prelim report reviewed, EMP read contemporaneously (no acute process) PD MEDICAL DECISION MAKING - ED course Complexity details: re-evaluated patient (transient drop in BP after Metoprolol dose, but improved with fluids bolus. HR down to 80s. ), considered differential , d/w patient, d/w computer consultant (Dr. Banks, Cardiology at [facility], who accepts the patient. (tried calling [facility], but they have no beds available; [facility] did once one was discharged so a short delay in transfer time). Patient is comfortable while here in ED. ) - Critical Care Time(min): 35 Time Includes: Direct patient care, Review records, Document care, Coordinate care, See progress note Data interpretation: Labs, CXR, See progress note Procedures excluded from critical care time: EKG - Sepsis Event Vital Signs: Vital Signs - 24 hr 05/06/18 05/06/18 05/06/18 06:29 07:17 08:02 Temperature 36.7 C Heart Rate 109 H 110 H 110 H Respiratory 20 20 19 Rate Blood Pressure 150/67 H 139/80 H 135/67 H O2 Saturation 100 95 95 05/06/18 05/06/18 05/06/18 08:39 09:52 11:32 Temperature Heart Rate 92 100 100 Respiratory 20 22 21 Rate Blood Pressure 109/54 L 100/35 L 112/60 O2 Saturation 95 96 97 05/06/18 05/06/18 05/06/18 11:54 12:35 13:16 Temperature Heart Rate 99 88 99 Respiratory 16 16 18 Rate Blood Pressure 112/60 96/44 L 138/64 H O2 Saturation 95 98 98 Oxygen O2 Source Room air Departure - Departure Disposition: 02 Transfer Acute Care Hosp Clinical Impression: Chest pain Qualifiers: Chest pain type: precordial pain Qualified Code(s): R07.2 - Precordial pain Myocardial infarction Qualifiers: Myocardial infarction type: non-ST elevation myocardial infarction Qualified Code(s): I21.4 - Non-ST elevation (NSTEMI) myocardial infarction Condition: Stable Discharge Date/Time: 05/06/18 13:12
--- NOTE | 2018-05-06 07:35 | XRAY Report ---
Procedure Date: 05/06/2018 Accession Number: [id number] / [id number] Procedure: XR - Chest 1 View X-Ray CPT Code: 89746 FULL RESULT: EXAM: CHEST RADIOGRAPHY EXAM DATE: 05/06/2018 07:19 AM. CLINICAL HISTORY: Chest pain. COMPARISON: 04/14/2018. TECHNIQUE: 1 view. FINDINGS: Lungs/Pleura: Left costophrenic atelectasis or scarring No pleural effusion. No pneumothorax. Decreased lung volumes Mediastinum: Within exam limitations, the cardiomediastinal contour is normal. Moderate size hiatal hernia Other: None. IMPRESSION: No active cardiopulmonary disease RADIA
[2018-05-06] MEDS ORDERED: MAG HYDROX/AL HYDROX/SIMETH 30 ML UDC PO STA (07:38)
[2018-05-06] MEDS ORDERED: METOPROLOL 5 MG/5 ML VIAL IVP STA ×2 (07:39→11:27)
[2018-05-06] MEDS ORDERED: ONDANSETRON 4 MG/2 ML VIAL IVP STA (07:39)
[2018-05-06] MEDS ORDERED: MORPHINE 2 MG/ML SYRINGE IVP STA (07:39)
[2018-05-06] MEDS ORDERED: HEPARIN 5,000 UNIT/ML VIAL IVP STA (09:09)
[2018-05-06] MEDS ORDERED: HEPARIN 25000UNITS/500ML (D5W) 25,000 UNIT/500 ML BAG IV STA (09:09)
[2018-05-06] MEDS ORDERED: NITROGLYCERIN 2% PASTE TOP STA (09:26)
[2018-05-06] MEDS ORDERED: SODIUM CHLORIDE 0.9% 500 ML IV ONE (12:43)
[2018-05-06 13:17] VITALS: BP 138/64
== END 2018-05-06 13:12 | disposition short-term general hospital (02) ==
LOC: EDUNIT# → ED 06:27
DX: I21.4 Non-ST elevation (NSTEMI) myocardial infarction (principal); R07.2 Precordial pain; I10 Essential (primary) hypertension; I49.9 Cardiac arrhythmia, unspecified; K21.9 Gastro-esophageal reflux disease without esophagitis; Z86.010 Personal history of colon polyps
CPT/HCPCS: 36415; 71045; 80053; 83690; 83735; 83880; 84100; 84484; 85025; 93005; 96365; 96366; 96375; 96376; 99284; 99291; A9270; J2270; Q0162

== ENCOUNTER 2018-05-06 13:15 | Outpatient (CLI) | payer MEDICARE | END 2018-05-06 13:16 | disposition short-term general hospital (02) | LOC: EMS 13:15 | PROVIDERS: ATTEND Surgery | DX: I21.4 Non-ST elevation (NSTEMI) myocardial infarction (principal) | CPT/HCPCS: A0425; A0426 ==

== ENCOUNTER 2018-05-19 14:47 | Outpatient (CLI) | payer MEDICARE ==
[2018-05-19 19:00] LABS: MEAN CORPUSCULAR HEMOGLOBIN 27.7 pg (27.0-31.0); MEAN CORPUSCULAR HGB CONC 31.9 g/dL (32.0-36.0); MEAN CORPUSCULAR VOLUME 86.6 fL (81.0-99.0); MEAN PLATELET VOLUME 8.8 fL (7.9-10.8); RED BLOOD COUNT 3.98 10^6/uL (4.20-5.40); RED CELL DISTRIBUTION WIDTH 14.9 % (12.0-15.0); WHITE BLOOD COUNT 7.5 x10^3/uL (4.8-10.8)
[2018-05-19 19:11] LABS: CREATININE 0.7 mg/dL (0.4-1.0)
== END 2018-05-19 14:48 | disposition home or self-care (01) ==
LOC: LAB.WCP 14:47
PROVIDERS: ATTEND Family Medicine
DX: R06.00 Dyspnea, unspecified (principal)
CPT/HCPCS: 36415; 80048; 83880; 85027

== ENCOUNTER 2018-06-03 08:00 | Outpatient (CLI) | payer MEDICARE ==
[2018-06-03 12:16] LABS: HGB - HEMOGLOBIN 12.8 g/dL (12.0-16.0); MEAN CORPUSCULAR HEMOGLOBIN 27.5 pg (27.0-31.0); MEAN CORPUSCULAR HGB CONC 32.6 g/dL (32.0-36.0); MEAN CORPUSCULAR VOLUME 84.3 fL (81.0-99.0); MEAN PLATELET VOLUME 8.6 fL (7.9-10.8); RED BLOOD COUNT 4.64 10^6/uL (4.20-5.40); WHITE BLOOD COUNT 7.2 x10^3/uL (4.8-10.8)
[2018-06-03 12:52] LABS: CALCIUM 9.5 mg/dL (8.5-10.3)
== END 2018-06-03 08:01 | disposition home or self-care (01) ==
LOC: LAB.WCP 08:00
PROVIDERS: ATTEND Family Medicine
DX: R06.00 Dyspnea, unspecified (principal)
CPT/HCPCS: 36415; 80048; 83880; 85027

== ENCOUNTER 2019-05-10 10:19 | Outpatient (CLI) | payer MEDICARE ==
--- NOTE | 2019-05-11 08:24 | DEXA Report ---
Reason: OSTEOPENIA Procedure Date: 05/10/2019 Accession Number: [id number] / [id number] Procedure: DEX - Dexa Spine and/or Hip CPT Code: FULL RESULT: EXAM: Dexa Spine and/or Hip DATE: 05/10/2019 11:09 AM CLINICAL HISTORY: OSTEOPENIA TECHNIQUE: Dual energy x-ray absorptiometry (DXA) was performed on a Antidot System. Regions measured are the AP Spine, femoral neck, and if needed forearm. COMPARISON: None. In accordance with the International Society for Clinical Densitometry (ISCD) guidelines, data from previous exams may be reanalyzed using current recommendations and techniques. This is done to allow a more accurate basis for comparison with the current study. FINDINGS: The data for the lumbar spine is as follows: BMD (g/cm/cm) T-SCORE Z-SCORE REGION L1 0.880 -2.1 -0.4 L2 1.079 -1.0 0.7 L3 1.190 -0.1 1.6 L4 1.198 0.0 1.6 TOTAL 1.100 -0.7 1.0 NOTE: All evaluable vertebrae are used for classification The data for the hip is as follows: BMD (g/cm/cm) T-SCORE Z-SCORE REGION Neck 0.763 -2.0 0.1 TOTAL 0.957 -0.4 1.5 NOTE: The femoral neck or total proximal femur, whichever is lowest, is used for classification. IMPRESSION: THE WHO CLASSIFICATION BASED ON THE INTERNATIONAL REFERENCE STANDARD IS OSTEOPENIA. THE FRACTURE RISK IS INCREASED. RECOMMENDATION: Patients with diagnosis of osteoporosis or osteopenia should have regular bone mineral density assessment. For those eligible for Medicare, routine testing is allowed once every 2 years. Testing frequency can be increased for patients who have rapidly progressing disease or for those who are receiving medical therapy to restore bone mass. COMMENT: World Health Organization (WHO) definitions for osteoporosis and osteopenia: NORMAL BMD: T-score at -1.0 or higher, fracture risk is low OSTEOPENIA BMD: T-score between -1.0 and -2.5, fracture risk is increased. OSTEOPOROSIS BMD: T-score at -2.5 or lower, fracture risk is high. National Osteoporosis Foundation recommends: 1. Obtain adequate dietary calcium (at least 1200 mg per day) and vitamin D (400-800 international units per day). 2. Participate, as appropriate, in regular weightbearing and muscle-strengthening exercise. 3. Avoid tobacco use and reduce alcohol and caffeine intake. 4. For more detailed information see the website at www.NOF.org.
== END 2019-05-10 10:20 | disposition home or self-care (01) ==
LOC: DI 10:19
PROVIDERS: ATTEND Family Medicine
DX: M85.88 Other specified disorders of bone density and structure, other site (principal)
CPT/HCPCS: 77080

== ENCOUNTER 2019-05-17 03:35 | Outpatient (CLI) | payer MEDICARE | END 2019-05-17 03:36 | disposition critical access hospital (66) | LOC: EMS 03:35 | PROVIDERS: ATTEND Surgery | DX: R07.9 Chest pain, unspecified (principal) | CPT/HCPCS: A0425; A0427 ==

== ENCOUNTER 2019-05-17 03:49 | Emergency (ER) | payer MEDICARE ==
[2019-05-17 04:11] LABS: BASOPHILS # (AUTO) 0.1 10^3/uL (0.0-0.1); BASOPHILS % (AUTO) 0.5 %; EOSINOPHILS # (AUTO) 0.1 10^3/uL (0.0-0.7); EOSINOPHILS % (AUTO) 0.8 %; HGB - HEMOGLOBIN 12.1 g/dL (12.0-16.0); LYMPHOCYTES # (AUTO) 1.2 10^3/uL (1.5-3.5); LYMPHOCYTES % (AUTO) 13.5 %; MEAN CORPUSCULAR HEMOGLOBIN 27.4 pg (27.0-31.0); MEAN CORPUSCULAR HGB CONC 30.6 g/dL (32.0-36.0); MEAN CORPUSCULAR VOLUME 89.4 fL (81.0-99.0); MEAN PLATELET VOLUME 9.9 fL (7.9-10.8); MONOCYTES # (AUTO) 0.5 10^3/uL (0.0-1.0); MONOCYTES % (AUTO) 5.4 %; NEUTROPHILS # (AUTO) 7.2 10^3/uL (1.5-6.6); NEUTROPHILS % (AUTO) 79.3 %; PLT - PLATELET COUNT 325 10^3/uL (130-450); RED BLOOD COUNT 4.42 10^6/uL (4.20-5.40); RED CELL DISTRIBUTION WIDTH 12.6 % (12.0-15.0); WHITE BLOOD COUNT 9.1 x10^3/uL (4.8-10.8)
[2019-05-17 04:26] LABS: ALBUMIN 3.9 g/dL (3.2-5.5); ALBUMIN/GLOBULIN RATIO 1.3 (1.0-2.2); BILIRUBIN,TOTAL 0.4 mg/dL (0.2-1.0); CALCIUM 9.6 mg/dL (8.5-10.3); CREATININE 0.9 mg/dL (0.4-1.0); TOTAL PROTEIN 6.8 g/dL (6.7-8.2)
[2019-05-17 04:31] LABS: BILIRUBIN,URINE NEGATIVE (NEGATIVE); GLUCOSE, URINE (UA) 250 mg/dL (NEGATIVE); KETONES,URINE (UA) NEGATIVE (NEGATIVE); LEUKOCYTE ESTERASE, URINE NEGATIVE (NEGATIVE); NITRITE,URINE NEGATIVE (NEGATIVE); OCCULT BLOOD,URINE NEGATIVE (NEGATIVE); PH,URINE 5.5 PH (5.0-7.5); PROTEIN,URINE NEGATIVE (NEGATIVE); UROBILINOGEN,URINE 0.2 (NORMAL) E.U./dL (NORMAL)
--- NOTE | 2019-05-17 04:31 | XRAY Report ---
Reason: chest pain Procedure Date: 05/17/2019 Accession Number: [id number] / [id number] Procedure: XR - Chest 1 View X-Ray CPT Code: 34084 FULL RESULT: EXAM: CHEST RADIOGRAPHY EXAM DATE: 05/17/2019 04:19 AM. CLINICAL HISTORY: Chest pain. COMPARISON: CHEST 2 VIEW PA/LAT 05/19/2018 2:17 PM. TECHNIQUE: 1 view. FINDINGS: Lungs/Pleura: No focal opacities evident. No pleural effusion. No pneumothorax. Mediastinum: Within exam limitations, the cardiomediastinal contour is normal. Hiatal hernia appears stable. Other: None. IMPRESSION: Hiatal hernia. No evidence of acute cardiopulmonary disease. RADIA
[2019-05-17 04:33] LABS: CLARITY,URINE CLEAR (CLEAR)
[2019-05-17] MEDS ORDERED: NITROGLYCERIN SL 0.4 MG TABLET SL STA ×2 (04:58→04:59)
[2019-05-17] MEDS ORDERED: NITROGLYCERIN SL 0.4 MG TABLET SL ONE (05:05)
--- NOTE | 2019-05-17 05:16 | ED Physician Documentation ---
PD HPI CHEST PAIN - Stated complaint Stated Complaint: CHEST DISCOMFORT - Chief complaint Chief Complaint: Cardiac - History obtained from History obtained from: Patient - History of Present Illness Timing - onset: Enter time (2129), Last night Timing - onset during: Rest Timing - duration: Hours Timing - details: Abrupt onset, Still present Pain level max: 8 Pain level now: 8 Quality: Pressure, Sharp Location: Substernal, Left chest Radiation: Back Improved by: Rest Worsened by: Exertion Associated symptoms: Shortness of air Similar symptoms before: Diagnosis (NSTEMI/tachasobo) Recently seen: Not recently seen - Additional information Additional information: 79-year-old female with a history of Takostubo cardiomyopathy has developed chest pain at approximately 9:30 PM last night while at rest. She states the pain is in her central chest radiating to her back and she has become nauseous with this with some retching she has had persistence of the pain she is eventually called the ambulance. She states that she has had some dizziness and lightheadedness associated with this as well. She had a history of episodes of chest pain last year of a similar nature was eventually taken to [facility] in [place] which demonstrated clean coronaries arteries and she did develop coronary artery vasospasm while on the table. Review of Systems Constitutional: denies: Fever Eyes: denies: Decreased vision Ears: denies: Ear pain Nose: denies: Rhinorrhea / runny nose, Congestion Throat: denies: Sore throat Cardiac: reports: Chest pain / pressure. denies: Palpitations, Pedal edema, Calf pain Respiratory: reports: Dyspnea. denies: Cough, Wheezing GI: reports: Nausea, Vomiting. denies: Abdominal Pain : denies: Dysuria, Frequency Skin: denies: Rash Musculoskeletal: reports: Back pain. 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 04/15/18 05/17/19 Sucralfate [Carafate] 1 gm PO DAILY 04/28/18 05/17/19 Apixaban [Eliquis] 5 mg PO DAILY 05/17/19 05/17/19 Furosemide [Lasix] 20 mg PO DAILY 05/17/19 05/17/19 Losartan [Cozaar] 25 mg PO DAILY 05/17/19 05/17/19 Potassium Chloride [Micro-K] 10 meq PO DAILY 05/17/19 05/17/19 RX: Metoprolol Tartrate 25 mg PO DAILY 05/17/19 05/17/19 amLODIPine [Norvasc] 2.5 mg PO DAILY 05/17/19 05/17/19 - Allergies Allergies/Adverse Reactions: Allergies Allergy/AdvReac Type Severity Reaction Status Date / Time codeine Allergy Unknown Verified 05/17/19 03:57 Penicillins Allergy Unknown Verified 05/17/19 03:57 - Social History Does the pt smoke?: No Smoking Status: Never smoker Does the pt drink ETOH?: No Does the pt have substance abuse?: No - Immunizations Immunizations are current?: Yes - POLST Patient has POLST: No PD ED PE NORMAL - Vitals Vital signs reviewed: Yes (tachy and hypertensive) - General General: Alert and oriented X 3, Well developed/nourished, Other (apears to be in pain with bindery worker tone and flat affect ) - HEENT HEENT: Atraumatic, PERRL, EOMI - Neck Neck: Supple, no meningeal sign - Cardiac Cardiac: RRR, No murmur - Respiratory Respiratory: No respiratory distress, Clear bilaterally - Abdomen Abdomen: Soft, Non tender - Back Back: No CVA TTP, No spinal TTP - Derm Derm: Normal color, Warm and dry, No rash - Extremities Extremities: No deformity, No edema - Neuro Neuro: Alert and oriented X 3, 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, No motor deficit, No sensory deficit, Normal speech Eye Opening: Spontaneous Motor: Obeys Commands Verbal: Oriented GCS Score: 15 - Psych Psych: Normal mood Results - Vitals Vitals: Vital Signs - 24 hr 05/17/19 05/17/19 05/17/19 03:52 04:04 04:55 Temperature 36.5 C Heart Rate 103 H 100 101 H Respiratory 22 18 21 Rate Blood Pressure 132/69 H 126/62 111/99 H O2 Saturation 99 100 99 05/17/19 05/17/19 05/17/19 05:05 05:20 05:33 Temperature Heart Rate 98 99 102 H Respiratory 18 20 14 Rate Blood Pressure 106/57 L 119/51 L 114/76 O2 Saturation 97 96 97 05/17/19 05/17/19 06:04 07:14 Temperature 36.6 C Heart Rate 100 101 H Respiratory 16 24 Rate Blood Pressure 119/70 116/64 O2 Saturation 98 97 Oxygen O2 Source Room air - EKG (time done) 0350 Rate: Rate (enter#) (102) Rhythm: Sinus tachycardia, LAE, Other (pvc's) Compare to prior EKG: Changed from prior EKG (SPT 05-06-18 the voltage has decreased the subtle ST elevations present previously have decreased. ) Computer interpretation: Agree with computer - Labs Labs: Laboratory Tests 05/17/19 05/17/19 05/17/19 04:00 04:00 04:00 WBC 9.1 RBC 4.42 Hgb 12.1 Hct 39.5 MCV 89.4 MCH 27.4 MCHC 30.6 L RDW 12.6 Plt Count 325 MPV 9.9 Neut # (Auto) 7.2 H Lymph # (Auto) 1.2 L [place] # (Auto) 0.5 Eos # (Auto) 0.1 Baso # (Auto) 0.1 Absolute Nucleated RBC 0.00 Nucleated RBC % 0.0 Sodium 142 Potassium 4.3 Chloride 107 Carbon Dioxide 21 Anion Gap 14.0 H BUN 21 H Creatinine 0.9 Estimated GFR (MDRD) 60 L Glucose 172 H Calcium 9.6 Total Bilirubin 0.4 AST 26 ALT 19 Alkaline Phosphatase 120 Troponin I 0.45 Total Protein 6.8 Albumin 3.9 Globulin 2.9 Albumin/Globulin Ratio 1.3 Lipase 39 Urine Color Urine Clarity Urine pH Ur Specific [place] Urine Protein Urine Glucose (UA) Urine Ketones Urine Occult Blood Urine Nitrite Urine Bilirubin Urine Urobilinogen Ur Leukocyte Esterase Ur Microscopic Review Urine Culture Comments 05/17/19 04:15 WBC RBC Hgb Hct MCV MCH MCHC RDW Plt Count MPV Neut # (Auto) Lymph # (Auto) [place] # (Auto) Eos # (Auto) Baso # (Auto) Absolute Nucleated RBC Nucleated RBC % Sodium Potassium Chloride Carbon Dioxide Anion Gap BUN Creatinine Estimated GFR (MDRD) Glucose Calcium Total Bilirubin AST ALT Alkaline Phosphatase Troponin I Total Protein Albumin Globulin Albumin/Globulin Ratio Lipase Urine Color YELLOW Urine Clarity CLEAR Urine pH 5.5 Ur Specific [place] 1.025 Urine Protein NEGATIVE Urine Glucose (UA) 250 H Urine Ketones NEGATIVE Urine Occult Blood NEGATIVE Urine Nitrite NEGATIVE Urine Bilirubin NEGATIVE Urine Urobilinogen 0.2 (NORMAL) Ur Leukocyte Esterase NEGATIVE Ur Microscopic Review NOT INDICATED Urine Culture Comments NOT INDICATED - Rads (name of study) chest Radiology: Prelim report reviewed (Impression: Hiatal hernia. No evidence of acute cardiopulmonary disease.), EMP read indepedently, See rad report Procedures - IVC sono (time) 0500 Bedside IVC sono: IVC measures (cm) (1.58), IVC collapsed c insp (cm) (1.07), Collapsibility index (0.32), Euvolemia (on the side of retention) PD MEDICAL DECISION MAKING - ED course Complexity details: reviewed old records, reviewed results, re-evaluated patient, considered differential, d/w patient, d/w family ED course: 79-year-old female with a history of Takotsubo cardiomyopathy has developed another episode of chest pain last night that has been persistent and she has elevated her troponin into the indeterminate range. I [facility] [place] [facility] Valdez who recommends transfer of the patient to the hospitalist and attempting to control the patient's pain to include Toradol. Dr. Benito hospitalist at [facility] will be accepting The patient will need to wait for a bed in [place] and while waiting she has a return of her pain. She has some improvement with this with the use of Ativan. I did investigate the patient's stress and she indicates that 1 year ago she and her brass pourer, who is with her here today, were having some troubles and she moved back to the [facility]. The two are now improved in their relationship. Departure - Departure Disposition: 02 Transfer Acute Care Hosp Clinical Impression: NSTEMI (non-ST elevated myocardial infarction), Takotsubo syndrome Condition: Fair
[2019-05-17] MEDS ORDERED: KETOROLAC 30 MG/ML VIAL IVP STA (05:31)
[2019-05-17] MEDS ORDERED: LORazepam 2 MG/ML VIAL IVP STA ×2 (06:09→09:32)
[2019-05-17] MEDS ORDERED: LORazepam 2 MG/ML VIAL ONE (09:15)
[2019-05-17 09:32] VITALS: BP 132/65
== END 2019-05-17 09:52 | disposition short-term general hospital (02) ==
LOC: EDUNIT# → ED 03:49
DX: I21.4 Non-ST elevation (NSTEMI) myocardial infarction (principal); I51.81 Takotsubo syndrome; I11.9 Hypertensive heart disease without heart failure; I49.3 Ventricular premature depolarization; R00.0 Tachycardia, unspecified; K44.9 Diaphragmatic hernia without obstruction or gangrene; K21.9 Gastro-esophageal reflux disease without esophagitis; Z79.01 Long term (current) use of anticoagulants
CPT/HCPCS: 36415; 71045; 80053; 81003; 83690; 84484; 85025; 93005; 96374; 96375; 96376; 99284; 99285; A9270; J2060; 81001; 87086

== ENCOUNTER 2019-05-17 09:16 | Outpatient (CLI) | payer MEDICARE | END 2019-05-17 09:17 | disposition short-term general hospital (02) | LOC: EMS 09:16 | PROVIDERS: ATTEND Surgery | DX: R07.9 Chest pain, unspecified (principal) | CPT/HCPCS: A0425; A0426 ==

== ENCOUNTER 2020-06-19 11:46 | Outpatient (CLI) | payer MEDICARE ==
--- NOTE | 2020-06-19 17:34 | XRAY Report ---
Reason: CERVICAL RADICULOPATHY Procedure Date: 06/19/2020 Accession Number: [id number] / [id number] Procedure: WCP - Cervical Spine 2 View CPT Code: Final Report FULL RESULT: PROCEDURE: Cervical Spine 2 View INDICATIONS: CERVICAL RADICULOPATHY TECHNIQUE: 2 view(s) of the cervical spine were acquired. COMPARISON: None. FINDINGS: Bones: No fractures or dislocations to the C7/T1 level. The lateral masses of C1 appear intact on the odontoid view. No suspicious bony lesions. Moderate to severe degenerative changes are present within the mid cervical spine including intervertebral disc space narrowing, endplate sclerosis, and osteophytosis. No compression deformities. Soft tissues: No prevertebral soft tissue swelling. Soft tissue calcifications anterior to the C4-5 disc interspace may represent vascular calcifications which are incompletely characterized. IMPRESSION: Degenerative change. Questionable carotid artery atherosclerosis. If further characterization is warranted, carotid duplex could be used. Reviewed by: Ketty Lee MD on 06/19/2020 5:33 PM PDT Approved by: Ketty Lee MD on 06/19/2020 5:33 PM PDT Station ID: [id number]
== END 2020-06-19 23:59 | disposition home or self-care (01) ==
LOC: DI.WCP 11:46
PROVIDERS: ATTEND Family Medicine
DX: M50.320 Other cervical disc degeneration, mid-cervical region, unspecified level (principal); M25.78 Osteophyte, vertebrae
CPT/HCPCS: 72040

== ENCOUNTER 2021-02-22 07:00 | Outpatient (CLI) | payer MEDICARE | END 2021-02-22 23:59 | disposition home or self-care (01) | LOC: LAB.R 07:00 | PROVIDERS: ATTEND Surgery | DX: Z11.59 Encounter for screening for other viral diseases (principal); Z20.822 Contact with and (suspected) exposure to COVID-19 ==

== ENCOUNTER 2021-04-29 13:32 | Emergency (ER) | payer MEDICARE ==
[2021-04-29] MEDS ORDERED: LIDOCAINE-EPINEPH-TETRACAINE 3 ML SYRINGE TOP STA (13:47)
[2021-04-29] MEDS ORDERED: TETANUS/DIPHTHERIA/PERTUSSIS 0.5 ML SYRINGE IM ONE (13:47)
--- NOTE | 2021-04-29 13:49 | ED Physician Documentation ---
PD HPI HEAD INJURY - Stated complaint Stated Complaint: HEAD INJ - Chief complaint Chief Complaint: Trauma Hd/Nk - History obtained from History obtained from: Patient - Additional information Additional information: 81-year-old woman with unknown tetanus status was looking in her crawl space and when she ai up she hit the back of her head on a table. This was around 10:30 AM this morning. She does have a severe headache but declines pain medication noting that she had Tylenol prior to arrival. She has a cut on the back of her head. No other injuries. She was previously on apixaban but says she only takes baby aspirin now, no other blood thinners. There was no loss of consciousness. Review of Systems Ten Systems: 10 systems reviewed and negative Constitutional: reports: Reviewed and negative Throat: reports: Reviewed and negative Cardiac: reports: Reviewed and negative Respiratory: reports: Reviewed and negative PD PAST MEDICAL HISTORY - Past Medical History Past Medical History: Yes Cardiovascular: Hypertension, Atrial fibrillation, Arrhythmia Respiratory: Other Endocrine/Autoimmune: None GI: GERD, Colon polyps, Diverticulitis : None HEENT: Chronic vision loss Psych: None Musculoskeletal: None Derm: None - Past Surgical History Past Surgical History: Yes General: Appendectomy, Colonoscopy, EGD Ortho: Shoulder arthroplasty, 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 04/15/18 05/17/19 Sucralfate [Carafate] 1 gm PO DAILY 04/28/18 05/17/19 Apixaban [Eliquis] 5 mg PO DAILY 05/17/19 05/17/19 Furosemide [Lasix] 20 mg PO DAILY 05/17/19 05/17/19 Losartan [Cozaar] 25 mg PO DAILY 05/17/19 05/17/19 Metoprolol Tartrate 25 mg PO DAILY 05/17/19 05/17/19 Potassium Chloride [Micro-K] 10 meq PO DAILY 05/17/19 05/17/19 amLODIPine [Norvasc] 2.5 mg PO DAILY 05/17/19 05/17/19 - Allergies Allergies/Adverse Reactions: Allergies Allergy/AdvReac Type Severity Reaction Status Date / Time codeine Allergy Unknown Verified 04/29/21 13:36 Penicillins Allergy Unknown Verified 04/29/21 13:36 - Social History Does the pt smoke?: No Smoking Status: Never smoker Does the pt drink ETOH?: No Does the pt have substance abuse?: No - Immunizations Immunizations are current?: Yes - POLST Patient has POLST: No PD ED PE NORMAL - Vitals Vital signs reviewed: Yes - General General: Alert and oriented X 3, No acute distress - HEENT HEENT: PERRL, EOMI, Other (There is a laceration on the occiput which is quite tender.) - Neck Neck: Supple, no meningeal sign, No bony TTP - Back Back: No CVA TTP, No spinal TTP - Derm Derm: Normal color, Warm and dry - Extremities Extremities: No deformity, No tenderness to palpate, Normal ROM s pain, No edema, No calf tenderness / cord - Neuro Neuro: Alert and oriented X 3, padder 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, No motor deficit, No sensory deficit, Normal speech Eye Opening: Spontaneous Motor: Obeys Commands Verbal: Oriented GCS Score: 15 Results - Vitals Vitals: Vital Signs - 24 hr 04/29/21 04/29/21 13:36 14:58 Temperature 36.8 C 36.9 C Heart Rate 64 52 L Respiratory 16 16 Rate Blood Pressure 170/79 H 130/47 L O2 Saturation 97 99 Oxygen O2 Source Room air - Rads (name of study) CT Head / Cspine Radiology: EMP read contemporaneously (NAD) Procedures - Laceration (location) Occpitu Length in cm: 1.5 Wound type: Linear Anesthesia: LET, Lidocaine 1%, With bicarb Wound preparation: Irrigated copiously NS Skin layer closure: [place] (3) Other: Patient tolerated well, No complications, Neurovascular intact Departure - Departure Disposition: 01 Home, Self Care Clinical Impression: Concussion Qualifiers: Encounter type: initial encounter Loss of consciousness presence/duration: without LOC Qualified Code(s): S06.0X0A - Concussion without loss of consciousness, initial encounter Occipital scalp laceration Qualifiers: Encounter type: initial encounter Qualified Code(s): S01.01XA - Laceration without foreign body of scalp, initial encounter Condition: Good Record reviewed to determine appropriate education?: Yes Instructions: ED Head Injury Closed, ED Laceration Scalp Stitch Or Stap Comments: Tylenol as needed for pain. Return for new or worsening symptoms. Come back for any signs of infection which would include: Redness, swelling, drainage, increased pain, or fevers. Follow-up with your physician in 7-10 days for staple removal. Discharge Date/Time: 04/29/21 15:01
[2021-04-29] MEDS ORDERED: BUFFERED LIDOCAINE 10 ML SYRINGE SUBQ STA (14:18)
--- NOTE | 2021-04-29 14:20 | CT Report ---
PROCEDURE: HEAD WO INDICATIONS: head injury TECHNIQUE: Noncontrast 4.5 mm thick angled axial sections acquired from the foramen magnum to the vertex. For r adiation dose reduction, the following was used: automated exposure control, adjustment of mA and/or kV according to patient size. COMPARISON: Correlation is made with the accompanying neck CT, 04/29/2021. FINDINGS: Image quality: There is streak artifact seen through the skull base. CSF spaces: Basal cisterns a re patent. No extra-axial fluid collections. Ventricles are normal in size and shape. Brain: No midline shift. No intracranial masses or hemorrhage. Massey-white matter interface is norm al. Skull and face: Scalp hematoma can be seen posteriorly and on the right. No underlying calvarial fra cture is seen. Calvarium and visualized facial bones are intact, without suspicious lesions. Sinuses: Visualized sinuses and mastoids are clear. IMPRESSION: Right posterior scalp hematoma, without an underlying fracture. No significant intracranial abnormality is seen. No intracranial hemorrhage is seen. Reviewed by: Chapo Nunn MD on 04/29/2021 1:19 PM [email or web address] Approved by: Chapo Nunn MD on 04/29/2021 1:19 PM [facility] Station ID: [id number]
--- NOTE | 2021-04-29 14:22 | CT Report ---
PROCEDURE: CERVICAL SPINE WO INDICATIONS: head injury TECHNIQUE: Noncontrast 3 mm thick sections acquired from the skull base to the T4 level. Sagittal and coronal r eformats were then constructed. For radiation dose reduction, the following was used: automated exp osure control, adjustment of mA and/or kV according to patient size. COMPARISON: Correlation is made with the accompanying head CT, 04/29/2021. FINDINGS: Image quality: Excellent. Bones: No fractures or dislocations. Visualized superior ribs are intact. There is moderate disc space narrowing seen at C3-C4, with moderate posterior disc space narrowing at C4-C5, with moderate disc space narrowing at C5-C6 and C6-C7. There is minimal retrolisthesis seen a t C4-C5 and C5-C6. Posterior directed endplate osteophytes are seen at C5-C6 and the C6-C7. Soft tissues: Prevertebral soft tissues are normal in thickness. No paravertebral hematomas. No ap ical pneumothoraces. IMPRESSION: Negative for acute fracture. Multiple levels of relatively prominent degenerative change can be seen. Reviewed by: Chapo Nunn MD on 04/29/2021 1:21 PM [facility] Approved by: Chapo Nunn MD on 04/29/2021 1:21 PM [facility] Station ID: [id number]
[2021-04-29 14:59] VITALS: BP 130/47
== END 2021-04-29 15:01 | disposition home or self-care (01) ==
LOC: ED 13:32
DX: S06.0X0A Concussion without loss of consciousness, initial encounter (principal); S01.01XA Laceration without foreign body of scalp, initial encounter; W22.8XXA Striking against or struck by other objects, initial encounter; Y93.89 Activity, other specified; Y92.008 Other place in unspecified non-institutional (private) residence as the place of occurrence of the external cause; Z23 Encounter for immunization; M47.812 Spondylosis without myelopathy or radiculopathy, cervical region; I10 Essential (primary) hypertension; Z79.82 Long term (current) use of aspirin
CPT/HCPCS: 12001; 90471; 99282; 99284

== ENCOUNTER 2021-09-22 13:31 | Emergency (ER) | payer MEDICARE ==
--- NOTE | 2021-09-22 14:18 | ED Physician Documentation ---
History of Present Illness - Stated complaint Stated Complaint: NAUSEA,HEADACHE,SORE THROAT,BODY ACHES - Chief complaint Chief Complaint: Resp - Additonal information Additional information: 81-year-old female presents the emergency department for evaluation of headaches, body aches chills and fevers at home for the last 3 days. She reports some generalized abdominal discomfort but no vomiting, diarrhea or urinary symptoms. She is fully vaccinated for COVID-19 including a recent booster. However she is concerned that she could have COVID-19 as her partner who recently passed require 24-hour care and a few of the caregivers were un vaccinated. She is planning to travel to [place] in 2 weeks and wants to ensure she is healthy enough to do so. Review of Systems Constitutional: reports: Fever, Chills, Myalgias, Fatigue Eyes: reports: Reviewed and negative Ears: reports: Reviewed and negative Nose: reports: Reviewed and negative Throat: reports: Reviewed and negative Cardiac: reports: Reviewed and negative Respiratory: denies: Dyspnea, Cough GI: reports: Abdominal Pain. 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 04/15/18 05/17/19 Sucralfate [Carafate] 1 gm PO DAILY 04/28/18 05/17/19 Apixaban [Eliquis] 5 mg PO DAILY 05/17/19 05/17/19 Furosemide [Lasix] 20 mg PO DAILY 05/17/19 05/17/19 Losartan [Cozaar] 25 mg PO DAILY 05/17/19 05/17/19 Metoprolol Tartrate 25 mg PO DAILY 05/17/19 05/17/19 Potassium Chloride [Micro-K] 10 meq PO DAILY 05/17/19 05/17/19 amLODIPine [Norvasc] 2.5 mg PO DAILY 05/17/19 05/17/19 - Allergies Allergies/Adverse Reactions: Allergies Allergy/AdvReac Type Severity Reaction Status Date / Time codeine Allergy Unknown Verified 04/29/21 13:36 Penicillins Allergy Unknown Verified 04/29/21 13:36 - Social History Does the pt smoke?: No Smoking Status: Never smoker Does the pt drink ETOH?: No Does the pt have substance abuse?: No - Immunizations Immunizations are current?: Yes - POLST Patient has POLST: No PD ED PE NORMAL - General General: Alert and oriented X 3, No acute distress, Well developed/nourished - HEENT HEENT: PERRL, Moist mucous membranes, Pharynx benign - Neck Neck: Supple, no meningeal sign, No adenopathy - Cardiac Cardiac: RRR, No murmur, No gallop - Respiratory Respiratory: No respiratory distress, Clear bilaterally - Abdomen Abdomen: Normal bowel sounds, Soft, Non tender - Back Back: No CVA TTP, No spinal TTP - Derm Derm: Normal color, Warm and dry, No rash - Extremities Extremities: No deformity, No tenderness to palpate, Normal ROM s pain - Neuro Neuro: Alert and oriented X 3, stallion manager 2-12 intact, No motor deficit Eye Opening: Spontaneous Motor: Obeys Commands Verbal: Oriented GCS Score: 15 Results - Vitals Vitals: Vital Signs - 24 hr 09/22/21 09/22/21 09/22/21 13:46 14:49 16:04 Temperature 36.4 C L Heart Rate 102 H 89 65 Respiratory 16 18 18 Rate Blood Pressure 160/91 H 143/70 H 135/70 H O2 Saturation 96 95 99 Oxygen O2 Source Room air - Labs Labs: Laboratory Tests 09/22/21 09/22/21 09/22/21 13:45 14:22 14:45 WBC 7.0 RBC 4.99 Hgb 15.1 Hct 46.5 MCV 93.2 MCH 30.3 MCHC 32.5 RDW 12.3 Plt Count 307 MPV 10.1 Neut # (Auto) 4.8 Lymph # (Auto) 1.3 L [place] # (Auto) 0.5 Eos # (Auto) 0.2 Baso # (Auto) 0.1 Absolute Nucleated RBC 0.00 Nucleated RBC % 0.0 Sodium Potassium Chloride Carbon Dioxide Anion Gap BUN Creatinine Estimated GFR (MDRD) Glucose Calcium Total Bilirubin AST ALT Alkaline Phosphatase Total Protein Albumin Globulin Albumin/Globulin Ratio Lipase Urine Color YELLOW Urine Clarity CLEAR Urine pH 5.0 Ur Specific [place] >=1.030 H Urine Protein NEGATIVE Urine Glucose (UA) NEGATIVE Urine Ketones TRACE Urine Occult Blood NEGATIVE Urine Nitrite NEGATIVE Urine Bilirubin NEGATIVE Urine Urobilinogen 0.2 (NORMAL) Ur Leukocyte Esterase NEGATIVE Ur Microscopic Review NOT INDICATED Urine Culture Comments NOT INDICATED Nasal Adenovirus (PCR) NOT DETECTED Nasal B. parapertussis DNA (PCR) NOT DETECTED Nasal Coronavir 229E PCR NOT DETECTED Nasal Coronavir HKU1 PCR NOT DETECTED Nasal Coronavir NL63 PCR NOT DETECTED Nasal Coronavir OC43 PCR NOT DETECTED Nasal Enterovir/Rhinovir PCR NOT DETECTED Nasal Influenza B PCR NOT DETECTED Nasal Influenza A PCR NOT DETECTED Nasal Parainfluen 1 PCR NOT DETECTED Nasal Parainfluen 2 PCR NOT DETECTED Nasal Parainfluen 3 PCR NOT DETECTED Nasal Parainfluen 4 PCR NOT DETECTED Nasal RSV (PCR) NOT DETECTED Nasal B.pertussis DNA PCR NOT DETECTED Nasal C.pneumoniae (PCR) NOT DETECTED Tc Human Metapneumo PCR NOT DETECTED Nasal M.pneumoniae (PCR) NOT DETECTED Nasal SARS-CoV-2 (PCR) NOT DETECTED 09/22/21 14:45 WBC RBC Hgb Hct MCV MCH MCHC RDW Plt Count MPV Neut # (Auto) Lymph # (Auto) [place] # (Auto) Eos # (Auto) Baso # (Auto) Absolute Nucleated RBC Nucleated RBC % Sodium 142 Potassium 4.0 Chloride 104 Carbon Dioxide 26 Anion Gap 12.0 BUN 12 Creatinine 0.9 Estimated GFR (MDRD) 60 L Glucose 156 H Calcium 9.7 Total Bilirubin 0.5 AST 17 ALT 13 Alkaline Phosphatase 118 Total Protein 7.2 Albumin 4.3 Globulin 2.9 Albumin/Globulin Ratio 1.5 Lipase 29 Urine Color Urine Clarity Urine pH Ur Specific [place] Urine Protein Urine Glucose (UA) Urine Ketones Urine Occult Blood Urine Nitrite Urine Bilirubin Urine Urobilinogen Ur Leukocyte Esterase Ur Microscopic Review Urine Culture Comments Nasal Adenovirus (PCR) Nasal B. parapertussis DNA (PCR) Nasal Coronavir 229E PCR Nasal Coronavir HKU1 PCR Nasal Coronavir NL63 PCR Nasal Coronavir OC43 PCR Nasal Enterovir/Rhinovir PCR Nasal Influenza B PCR Nasal Influenza A PCR Nasal Parainfluen 1 PCR Nasal Parainfluen 2 PCR Nasal Parainfluen 3 PCR Nasal Parainfluen 4 PCR Nasal RSV (PCR) Nasal B.pertussis DNA PCR Nasal C.pneumoniae (PCR) Tc Human Metapneumo PCR Nasal M.pneumoniae (PCR) Nasal SARS-CoV-2 (PCR) - Rads (name of study) CXR Radiology: Final report received (no acute cardiopulmonary process) PD MEDICAL DECISION MAKING - ED course Complexity details: reviewed results, re-evaluated patient, considered differential, d/w patient ED course: This is a well-appearing 81-year-old female that presents the emergency department requesting a Covid screen. For the last few days she has been having fevers myalgias chills and headache. She is fully vaccinated for COVID-19. Her cardiopulmonary auscultation is unremarkable. Her vital signs are also reassuring without tachypnea tachycardia hypotension or hypoxia. Screening CBC and electrolytes are unremarkable. Urine shows no signs of infection and her chest x-ray shows no acute focal opacities. Res PCR negative. Pt notified Departure - Departure Disposition: 01 Home, Self Care Clinical Impression: Flu-like symptoms Condition: Stable Record reviewed to determine appropriate education?: Yes Instructions: ED Viral Syndrome Comments: Prerna were seen in the emergency department today for fevers, myalgias, fatigue and body aches. Your Covid test is pending. Your screening chest x-ray is normal for age. Your lab work including a blood count and electrolyte/chemistry are all essentially normal. Your urine shows no signs of infection. We have obtained blood cultures and we will notify you in the next 24 to 48 hours if they are positive. However you do most likely have a viral syndrome. I recommend that you drink plenty of fluids and get rest. Tylenol and ibuprofen [id number] for any discomfort. Return to the emergency department if you are developing fevers that are worsening, you have chest pain, shortness of air or uncontrolled nausea vomiting or diarrhea. Enjoy your time in [place]. Discharge Date/Time: 09/22/21 16:04
--- NOTE | 2021-09-22 14:35 | XRAY Report ---
PROCEDURE: Chest 1 View X-Ray INDICATIONS: chest pain TECHNIQUE: One view of the chest was acquired. COMPARISON: None available at time of dictation. FINDINGS: Surgical changes and devices: None. Lungs and pleura: No pleural effusions or pneumothorax. Lungs are clear. Mediastinum: Mediastinal contours appear normal. Heart size is normal. Density in the anterior med iastinum consistent with known hiatal hernia. Vascular calcifications within the aorta. Bones and chest wall: No suspicious bony lesions. Likely soft tissue calcifications overlying the s acrum. Overlying soft tissues appear unremarkable. IMPRESSION: No evidence of an acute cardiopulmonary abnormality. Hiatal hernia. Reviewed by: Clay Alvarenga DO on 09/22/2021 1:33 PM [facility] Approved by: Clay Alvarenga DO on 09/22/2021 1:33 PM [facility] Station ID: [id number]
[2021-09-22 14:39] LABS: BILIRUBIN,URINE NEGATIVE (NEGATIVE); GLUCOSE, URINE (UA) NEGATIVE (NEGATIVE); KETONES,URINE (UA) TRACE mg/dL (NEGATIVE); LEUKOCYTE ESTERASE, URINE NEGATIVE (NEGATIVE); NITRITE,URINE NEGATIVE (NEGATIVE); OCCULT BLOOD,URINE NEGATIVE (NEGATIVE); PROTEIN,URINE NEGATIVE (NEGATIVE); UROBILINOGEN,URINE 0.2 (NORMAL) E.U./dL (NORMAL)
[2021-09-22 14:41] LABS: CLARITY,URINE CLEAR (CLEAR)
[2021-09-22 15:00] LABS: BASOPHILS # (AUTO) 0.1 10^3/uL (0.0-0.1); BASOPHILS % (AUTO) 0.7 %; EOSINOPHILS # (AUTO) 0.2 10^3/uL (0.0-0.7); EOSINOPHILS % (AUTO) 3.2 %; HCT - HEMATOCRIT 46.5 % (37.0-47.0); HGB - HEMOGLOBIN 15.1 g/dL (12.0-16.0); LYMPHOCYTES # (AUTO) 1.3 10^3/uL (1.5-3.5); LYMPHOCYTES % (AUTO) 18.8 %; MEAN CORPUSCULAR HEMOGLOBIN 30.3 pg (27.0-31.0); MEAN CORPUSCULAR HGB CONC 32.5 g/dL (32.0-36.0); MEAN CORPUSCULAR VOLUME 93.2 fL (81.0-99.0); MEAN PLATELET VOLUME 10.1 fL (7.9-10.8); MONOCYTES # (AUTO) 0.5 10^3/uL (0.0-1.0); MONOCYTES % (AUTO) 7.7 %; NEUTROPHILS # (AUTO) 4.8 10^3/uL (1.5-6.6); NEUTROPHILS % (AUTO) 68.9 %; PLT - PLATELET COUNT 307 10^3/uL (130-450); RED BLOOD COUNT 4.99 10^6/uL (4.20-5.40); RED CELL DISTRIBUTION WIDTH 12.3 % (12.0-15.0)
[2021-09-22 15:18] LABS: ALBUMIN 4.3 g/dL (3.2-5.5); ALBUMIN/GLOBULIN RATIO 1.5 (1.0-2.2); BILIRUBIN,TOTAL 0.5 mg/dL (0.2-1.0); CALCIUM 9.7 mg/dL (8.5-10.3); CREATININE 0.9 mg/dL (0.4-1.0); TOTAL PROTEIN 7.2 g/dL (6.7-8.2)
[2021-09-22 15:43] LABS: B. PARAPERTUSSIS- RESP PCR PAN NOT DETECTED; B. PERTUSSIS- RESP PCR PANEL NOT DETECTED; C. PNEUMONIAE- RESP PCR PANEL NOT DETECTED; CORONAVIRUS 229E-RESP PCR NOT DETECTED; CORONAVIRUS HKU1-RESP PCR NOT DETECTED; CORONAVIRUS NL63-RESP PCR NOT DETECTED; CORONAVIRUS OC43-RESP PCR NOT DETECTED; HUMAN METAPNEUMOVIRUS NOT DETECTED; INFLUENZA A- RESP PCR PANEL NOT DETECTED; INFLUENZA B - RESP PCR PANEL NOT DETECTED; M. PNEUMONIAE- RESP PCR PANEL NOT DETECTED; PARAINFLUENZA VIRUS 1 NOT DETECTED; PARAINFLUENZA VIRUS 2 NOT DETECTED; PARAINFLUENZA VIRUS 3 NOT DETECTED; PARAINFLUENZA VIRUS 4 NOT DETECTED; RHINOVIRUS/ENTEROVIRUS NOT DETECTED; RSV- RESP PCR PANEL NOT DETECTED; SARS-CoV-2 -RESP PCR PANEL NOT DETECTED
[2021-09-22 16:05] VITALS: BP 135/70
== END 2021-09-22 16:04 | disposition home or self-care (01) ==
LOC: ED 13:31
DX: R53.83 Other fatigue (principal); M79.10 Myalgia, unspecified site; R50.9 Fever, unspecified; Z20.822 Contact with and (suspected) exposure to COVID-19
CPT/HCPCS: 0202U; 36415; 80053; 81001; 81003; 83690; 85025; 87040; 87086; 99283; 99284

== ENCOUNTER 2022-01-02 10:20 | Emergency (ER) | payer MEDICARE ==
--- NOTE | 2022-01-02 11:54 | CT Report ---
PROCEDURE: CT brain without contrast INDICATIONS: fall/head injury TECHNIQUE: Noncontrast 4.5 mm thick angled axial sections acquired from the foramen magnum to the ve rtex. For radiation dose reduction, the following was used: automated exposure control, adjustment of mA and/or kV according to patient size. COMPARISON: None. FINDINGS: Image quality: Excellent. CSF spaces: Basal cisterns are patent. No extra-axial fluid collections. Ventricles are normal in size and shape. Brain: No midline shift. No intracranial masses or hemorrhage. Massey-white matter interface is norm al. Moderate atrophy and multifocal white matter chronic ischemic change noted. Atherosclerotic vasc ular calcification noted in the cavernous segments of both internal carotid arteries as well as the i ntradural vertebral arteries. Skull and face: Calvarium and visualized facial bones are intact, without suspicious lesions. Bilat eral intraocular lens replacements noted. Sinuses: Visualized sinuses and mastoids are clear. IMPRESSION: Atrophy and chronic ischemic change without acute intracranial hemorrhage or mass effect Reviewed by: Jose Armando Friedman MD on 01/02/2022 10:53 AM [facility] Approved by: Jose Armando Friedman MD on 01/02/2022 10:53 AM [facility] Station ID: [id number]
--- NOTE | 2022-01-02 11:58 | CT Report ---
PROCEDURE: CERVICAL SPINE WO INDICATIONS: fall/head injury TECHNIQUE: Noncontrast 3 mm thick sections acquired from the skull base to the T4 level. Sagittal and coronal r eformats were then constructed. For radiation dose reduction, the following was used: automated exp osure control, adjustment of mA and/or kV according to patient size. COMPARISON: 04/29/2021 FINDINGS: Image quality: Excellent. Bones: No fractures or posttraumatic subluxation. Severe disc height loss C3-C4 6 and prominent unc overtebral joint hypertrophy at these levels. There is prominent posterior endplate spurring at C6-7. Mild to moderate facet arthropathy at many levels, most severe on the right at C7-T1. Visualized sup erior ribs are intact. Soft tissues: Prevertebral soft tissues are normal in thickness. No paravertebral hematomas. No ap ical pneumothoraces. Coarse right carotid calcification. IMPRESSION: 1. No CT evidence of acute cervical spine trauma. 2. Multilevel degenerative changes, stable compared to recent prior study. Reviewed by: Che Gutierrez MD on 01/02/2022 11:57 AM PST Approved by: Che Gutierrez MD on 01/02/2022 11:57 AM PST Station ID: [id number]
--- NOTE | 2022-01-02 12:01 | CT Report ---
PROCEDURE: MAXILLOFACIAL WO INDICATIONS: fall/facial injury TECHNIQUE: Noncontrast 1.5 mm thick axial images acquired from the mandible through the frontal sinuses, with co gema and sagittal reformatting. For radiation dose reduction, the following was used: automated ex posure control, adjustment of mA and/or kV according to patient size. COMPARISON: None. FINDINGS: Image quality: Excellent. Bones and teeth: Orbital diaz are intact. Sinus diaz show no fracture or deformity. Nasal bones and septum are intact. Visualized portions of the mandible demonstrate no fractures or subluxation. Zygomatic arches are intact. Pterygoid plates are intact. Visualized portions of the skull base an d auditory canals are intact. Bilateral intraocular lens replacements noted. Sinuses: Paranasal sinuses are aerated, without fluid levels, mucosal thickening, or mucoceles. Mas toid air cells are aerated. Soft tissues: Bilateral periorbital soft tissue swelling noted. No edema, masses, or fluid collectio ns. No enlarged lymph nodes. No soft tissue lacerations or debris. Incidental findings described v ascular calcification is noted. Vascular: Visualized vascular structures appear normal in the absence of contrast. Bony vascular fo ramina and canals are intact. IMPRESSION: Periorbital soft tissue swelling without evidence of facial bone fracture Reviewed by: Jose Armando Friedman MD on 01/02/2022 10:59 AM [facility] Approved by: Jose Armando Friedman MD on 01/02/2022 10:59 AM [facility] Station ID: [id number]
--- NOTE | 2022-01-02 12:53 | ED Physician Documentation ---
History of Present Illness - Stated complaint Stated Complaint: GLF - Chief complaint Chief Complaint: Trauma Hd/Nk - History obtained from History obtained from: Patient, EMS - Additonal information Additional information: The patient comes to the emergency department chief complaint of fall. She was walking yesterday with her hands in her pockets when she tripped and fell face first to the floor. She did not lose consciousness, but has pain over her nasal bridge and extending to her right superior orbital rim. No visual changes. No focal neurologic deficits. No pain anywhere else. The patient states when she woke up this morning, she noticed bruising around both of her eyes and states that this concerned her and she decided to come in. The patient does take Eliquis. No otorrhea or rhinorrhea. She denies neck or back pain. No other complaints at this time. Review of Systems Ten Systems: 10 systems reviewed and negative Constitutional: reports: Reviewed and negative Eyes: reports: Reviewed and negative Ears: reports: Reviewed and negative Nose: reports: Reviewed and negative Throat: reports: Reviewed and negative Cardiac: reports: Reviewed and negative Respiratory: reports: Reviewed and negative GI: reports: Reviewed and negative : reports: Reviewed and negative Skin: reports: Reviewed and negative Musculoskeletal: reports: Reviewed and negative Neurologic: reports: Head injury Psychiatric: reports: Reviewed and negative Endocrine: reports: Reviewed and negative Immunocompromised: reports: Reviewed and negative PD PAST MEDICAL HISTORY - Past Medical History Cardiovascular: Hypertension, Atrial fibrillation, Arrhythmia Respiratory: Other Endocrine/Autoimmune: None GI: GERD, Colon polyps, Diverticulitis : None HEENT: Chronic vision loss Psych: None Musculoskeletal: None Derm: None - Past Surgical History Past Surgical History: Yes General: Appendectomy, Colonoscopy, EGD Ortho: Shoulder arthroplasty, 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, Hysterectomy, Other HEENT: Cataracts, Tonsil/Adenoidectomy - Present Medications Home Medications: Ambulatory Orders Medication Instructions Recorded Confirmed Metoprolol Tartrate 25 mg PO BID 05/17/19 05/17/19 Lisinopril [Zestril] 2.5 mg PO 01/02/22 Rivaroxaban [Xarelto] 20 mg PO 01/02/22 - Allergies Allergies/Adverse Reactions: Allergies Allergy/AdvReac Type Severity Reaction Status Date / Time codeine Allergy Unknown Verified 01/02/22 10:36 Penicillins Allergy Unknown Verified 01/02/22 10:36 - Social History Does the pt smoke?: No Smoking Status: Never smoker Does the pt drink ETOH?: No Does the pt have substance abuse?: No - Immunizations Immunizations are current?: Yes - POLST Patient has POLST: No PD ED PE NORMAL - Vitals Vital signs reviewed: Yes - General General: Alert and oriented X 3, No acute distress, Well developed/nourished - HEENT HEENT: PERRL, EOMI, Moist mucous membranes, Other (Patient has bilateral periorbital contusions without bony deformity. No otorrhea or rhinorrhea. No deformity of the face. No dental injury. Contusion also noted across midline forehead and over nasal bridge.) - Neck Neck: Supple, no meningeal sign, No bony TTP - Cardiac Cardiac: RRR, No murmur, Strong equal pulses - Respiratory Respiratory: No respiratory distress, Clear bilaterally - Abdomen Abdomen: Soft, Non tender, Non distended - Back Back: No spinal TTP - Derm Derm: Normal color, Warm and dry, No rash - Extremities Extremities: No deformity, No tenderness to palpate (All bones, All joints), Normal ROM s pain (All bones, all joints.), No edema, No calf tenderness / cord - Neuro Neuro: Alert and oriented X 3, color corrector 2-12 intact, Normal speech - Psych Psych: Normal mood, Normal affect Results - Vitals Vitals: Vital Signs - 24 hr 01/02/22 10:29 Temperature 36.8 C Heart Rate 67 Respiratory 18 Rate Blood Pressure 169/69 H O2 Saturation 99 Oxygen O2 Source Room air - Rads (name of study) CT head Radiology: Final report received, EMP read indepedently, See rad report (No acute disease) CT cervical spine Radiology: Final report received, EMP read indepedently, See rad report (No acu te disease) CT face Radiology: Final report received, EMP read indepedently, See rad report (No fractures) PD MEDICAL DECISION MAKING - ED course Complexity details: reviewed results, re-evaluated patient, considered differential, d/w patient ED course: The patient was worked up with CT scans of the face head and neck, all of which were found to be unremarkable for acute findings. We have discussed home management of the symptoms, and the usual indications for return. Departure - Departure Disposition: 01 Home, Self Care Clinical Impression: Fall from ground level Facial contusion Qualifiers: Encounter type: initial encounter Qualified Code(s): S00.83XA - Contusion of other part of head, initial encounter Closed head injury Qualifiers: Encounter type: initial encounter Qualified Code(s): S09.90XA - Unspecified injury of head, initial encounter Condition: Stable Instructions: ED Head Injury Closed, ED Contusion Face Comments: Your CT scans look good. There is no evidence of an acute, serious injury. You do not have any bleeding in the brain, nor do you have any breaks in the bones of your face, skull, or neck. You may continue your blood thinners as usual. Please follow-up with your primary care physician, as needed.
[2022-01-02 13:23] VITALS: BP 144/59
== END 2022-01-02 13:22 | disposition home or self-care (01) ==
LOC: ED 10:20
DX: S00.83XA Contusion of other part of head, initial encounter (principal); S09.90XA Unspecified injury of head, initial encounter; W01.0XXA Fall on same level from slipping, tripping and stumbling without subsequent striking against object, initial encounter; Y93.01 Activity, walking, marching and hiking; I10 Essential (primary) hypertension; I48.91 Unspecified atrial fibrillation; Z79.01 Long term (current) use of anticoagulants
CPT/HCPCS: 36415; 99282; 99284